=== PATIENT | male | born 1995 | race Caucasian/White ===

== ENCOUNTER 2017-09-27 18:37 | Emergency (ER) | payer MEDICAID ==
[~2017-09-27] VITALS: Ht 172.7 cm; Wt 74.8 kg
--- NOTE | 2017-09-27 18:46 | NUR ---
PT TO ER BED 12 C/O DIFFUSE ABDOMINAL CRAMPING W/ N/V/D X 1 WEEK. PT WAS AT URGENT CARE AND WAS REHYDRATED. AT HOME STATRED NOTICING BLOOD IN HIS STOOL. CALLED URGENT CARE AND WAS ADVISED TO GO TO ER. GOWNED AND PLACED ON MONITOR. AWAITING MD LÓEN.
--- NOTE | 2017-09-27 19:21 | NUR ---
BILLY CRIME SCENE INVESTIGATOR AT BEDSIDE FOR EVAL.
[2017-09-27] MEDS ORDERED: MORPHINE SULFATE INJ 2 MG/ML DISP.SYRIN IV ONE (19:30)
[2017-09-27] MEDS ORDERED: ONDANSETRON HCL/PF 4 MG/2 ML VIAL IVP ONE (19:30)
[2017-09-27] MEDS ORDERED: IV NS 0.9% 1,000 ML BAG IV ONE (19:30)
--- NOTE | 2017-09-27 19:30 | NUR ---
IV LINE STARTED BLOOD DRAWN ANS SENT TO LAB.
[2017-09-27 19:35] LABS: EOSINOPHILS # (AUTO) 0.1 /CMM (0.0-0.7); LYMPHOCYTES # (AUTO) 1.9 /CMM (0.8-4.8)
[2017-09-27 19:37] LABS: BASOPHILS % (AUTO) 0.2 % (0.0-2.0); EOSINOPHILS % (AUTO) 0.6 % (0.0-6.0); HEMATOCRIT 45 % (39-51); HEMOGLOBIN 15.9 g/dL (13.5-17.5); LYMPHOCYTES % (AUTO) 14.6 % (20.0-44.0); MEAN CORPUSCULAR HEMOGLOBIN 28 PG (26.0-33.0); MEAN CORPUSCULAR HGB CONC 35 g/dl (31.0-36.0); MEAN CORPUSCULAR VOLUME 80 fL (80-96); MONOCYTES # (AUTO) 4.1 /CMM (0.1-1.30); MONOCYTES % (AUTO) 31.6 % (2.0-12.0); NEUTROPHILS # (AUTO) 6.9 /CMM (1.8-8.9); PLATELET COUNT (AUTO) 278 /CMM (150-450); RED BLOOD CELL COUNT(AUTO) 5.66 MIL/uL (4.5-6.0)
[2017-09-27 19:47] LABS: POTASSIUM 3.8 mmol/L (3.5-5.1)
[2017-09-27 19:51] LABS: INR 1.15 (0.85-1.15)
[2017-09-27 19:53] LABS: ALBUMIN 3.5 g/dL (3.4-5.0); BILIRUBIN,DIRECT 0.1 mg/dL (0.0-0.2); BILIRUBIN,TOTAL 0.3 mg/dL (0.2-1.0); TOTAL PROTEIN, SERUM 7.2 g/dL (6.4-8.2)
[2017-09-27] MEDS ORDERED: ONDANSETRON HCL/PF 4 MG/2 ML VIAL ONE (19:53)
[2017-09-27] MEDS ORDERED: MORPHINE SULFATE INJ 4 MG/ML DISP.SYRIN ONE (19:53)
[2017-09-27] MEDS ORDERED: IOHEXOL-300 100 ML VIAL IV ONE (20:15)
[2017-09-27] MEDS ORDERED: IV NS 0.9% 250 ML IV ONE (20:15)
--- NOTE | 2017-09-27 20:31 | NUR ---
PT TO RADIOLOGY FOR ABDOMINAL CT SCAN VIA [facility].
[2017-09-27 21:05] LABS: BAND % (MANUAL) 13 % (0.0-5.0); LYMPHOCYTES % (MANUAL) 22 % (16-48); MONOCYTES % (MANUAL) 21 % (0-11.0); NEUTROPHILS % (MANUAL) 39 (42-76); REACTIVE LYMPHOCYTES 5 % (0-0)
[2017-09-27 21:08] LABS: APPEARANCE,URINE Clear (CLEAR); BILIRUBIN,URINE Negative (NEGATIVE); BLOOD, URINE Negative Ery/uL (NEGATIVE); COLOR,URINE Yellow (YELLOW); KETONES,URINE Negative (NEGATIVE); LEUKOCYTE ESTERASE ,URINE Negative (NEGATIVE); NITRITE, URINE Negative (NEGATIVE); PROTEIN,URINE Negative (NEGATIVE); UGLUCOSE Negative (NEGATIVE); UROBILINOGEN,URINE 0.2 EU/dL (0.2)
[2017-09-27 22:51] VITALS: BP 118/55
--- NOTE | 2017-09-28 00:09 | NUR ---
PT ACCEPTED TO [facility]. BED 315-B. # FOR REPORT [phone]. DR ANGELO.
--- NOTE | 2017-09-28 00:26 | NUR ---
AUTH NUMBER FOR AMBULANCE [id number]
--- NOTE | 2017-09-28 01:12 | NUR ---
REPORT GIVEN TO RONY LUND FOR CONTINUATION OF CARE.
== END 2017-09-28 01:31 | disposition short-term general hospital (02) ==
LOC: ER 18:44
DX: D72.825 Bandemia (principal); R10.32 Left lower quadrant pain; Q79.8 Other congenital malformations of musculoskeletal system; F17.200 Nicotine dependence, unspecified, uncomplicated; Z90.89 Acquired absence of other organs
CPT/HCPCS: 36415; 74160; 80048; 80076; 81001; 83690; 85025; 85730; 87081; 96361; 96374; 96375; 99285; 99406; A4606; J2270; J2405; J7030; J7050; Q9967; Z7610; 81000-TC